=== PATIENT | female | born 1945 | race Caucasian/White ===

== ENCOUNTER 2021-03-17 10:36 | Emergency (ER) | payer OTHER, SELFPAY ==
[2021-03-17] VITALS (14 sets, daily range): BP systolic 129–159; BP diastolic 62–108; PULSE 64–88; RESP 16–25; TEMP 36.7; O2SAT 93–98
--- NOTE | 2021-03-17 10:30 | RT.EKG_ITS ---
APPROVED REPORT Exam: Resting ECG Reason for Exam: syncope Patient Location: E HR:77 bpm ECG Measurements Heart Rate 77 AXIS WY 188 P 58 QRSd 124 QRS -68 QT 442 T 32 QTc 502 Conclusion Sinus rhythm. RBBB pattern Probable left ventricular hypertrophy
--- NOTE | 2021-03-17 10:40 | W.ED.GENAD ---
Discharge Plan Disposition Patient Disposition: HOME Condition: Stable Discharge Details Clinical Impression: Dizziness Primary Care Provider: Unknown,Unknown ED Provider: Darrion Kaplan Home Meds and New Rx's Prescriptions: New meclizine 25 mg tablet 25 mg PO TID PRNQty: 14 RF: 0 Discharge Instructions Instructions: Dizziness (ED) Additional Instructions: Work-up in the ER did not reveal any obvious emergent process and you have responded nicely to the medication. I am prescribing meclizine, take as directed. Plenty of fluids to avoid dehydration. Please watch for new or worsening symptoms and return to the ER for any concerns. I know you are here visiting from [place] and I strongly recommend reevaluation for your primary care provider when you return home. After speaking with your daughter, it sounds as though you may be here for an unknown period of time and she will actively attempt to get you a local primary care provider to meet your outpatient needs while you are in the area. Medical Decision Making 75-year-old female, denies significant past medical history, reports intermittent dizziness like the room spinning since Friday however now has been more constant. Yesterday after getting up to the fridge she states that she blacked out for a split second. She did not fall to the ground nor did she lose consciousness. Clinically she appears well, nontoxic is neurologically intact. She denies recent illness or trauma. Clinical presentation is most consistent with vertigo however cannot rule out a CVA, TIA, infectious process, anemia, electrolyte abnormality, etc. Will obtain IV access, give IV fluid, p.o. meclizine, 2 mg IV Valium, obtain cardiac work-up and a head CT. Given the duration of her symptoms I believe that a single troponin and EKG is reasonable in her evaluation Laboratory values do not reveal any obvious emergent process. She does have incidental hematuria but denies any abdominal pain, back pain, dysuria, hematuria. upon reevaluation patient was witnessed ambulating without any difficulty. She reports that her symptoms have resolved completely and she is back to baseline. Still awaiting CT results. CT imaging read by radiology is unremarkable. I discussed findings both with patient and her daughter Aga on the phone. Patient continues to be asymptomatic. He situation is complicated because the patient typically lives in [place], that is where she receives her primary medical care. Patient is here currently for at least the next 3 weeks but likely longer while her daughter is going through cancer treatment. Daughter is comfortable taking her home in her current condition and they will attempt to establish primary care provider here while she is here in the area through the daughter's primary care provider. She requested I provide the prescription to [facility] in [place]. Neither patient nor daughter has any additional questions or concerns and are comfortable discharge, I will provide a prescription for meclizine. I stressed the importance of return to the ER for new or worsening symptoms and the importance of outpatient reevaluation whether that be local or back in [place]. Upon discharge patient is asymptomatic. Again work-up here in the ER does not reveal any obvious emergent process. Discussed that outpatient evaluation such as neurology consultation, MRI, etc. may be indicated. Medical Records Medical records reviewed: Yes I reviewed the patient's medical records. Imaging Data Radiologic Study: Attestation: I personally reviewed and interpreted this imaging study as follows: Imaging: CT Scan Radiologist's impression: [facility] Preliminary Radiology Report Call: [phone] assistance Online chat: [email or web address] Patient Name: HUGO FLETCHER Institution Name: [place] [address] Study Type: CT HEAD WO Ordered As: CT HEAD WO Date of Dictation: 17 Mar 2021 EDT Date of Exam: 17 Mar 2021 EDT Account Number: Patient : [id number] Patient Location: er Group Counselor: Referring Physician: Darrion KAPLAN This interpretation is based upon the receipt of 989 images. OPERATIONAL TEST MECHANIC (QA) DISCREPANCY? If there is a discrepancy between the preliminary and final interpretation, please notify [facility] via [email or web address]. If you do not have access to our QA portal, call our QA team at [phone] CONFIDENTIALITY STATEMENT This report is intended only for the use of the referring physician, and only in accordance with law, If you received this in error, call [phone] Page 1 of 1 PROCEDURE INFORMATION: Exam: CT Head Without Contrast Exam date and time: 03/17/2021 10:54 AM Age: 75 years old Clinical indication: Other: Dizzy, syncope TECHNIQUE: Imaging protocol: Computed tomography of the head without contrast. Radiation optimization: All CT scans at this facility use at least one of these dose optimization techniques: automated exposure control; mA and/or kV adjustment per patient size (includes targeted exams where dose is matched to clinical indication); or iterative reconstruction. COMPARISON: No relevant prior studies available. FINDINGS: Brain: Normal. No hemorrhage. Unremarkable white matter. No mass effect. Cerebral ventricles: No ventriculomegaly. Paranasal sinuses: Visualized sinuses are unremarkable. No fluid levels. Mastoid air cells: Visualized mastoid air cells are well aerated. Bones/joints: Hyperostosis frontalis. Soft tissues: Unremarkable. IMPRESSION: No acute intracranial findings. Thank you for allowing us to participate in the care of your patient. Dictated and Authenticated by: Iker Cabral MD 03/17/2021 12:36 PM Eastern Time ([place] & [place]) Lab Data Lab results reviewed: Yes I reviewed the patient's lab results. Labs: Laboratory Tests Range/Units 03/17/21 03/17/21 03/17/21 10:50 10:50 11:02 WBC (4.4-10.8) 10^3/uL 8.63 RBC (3.93-5.22) 10^6/uL 5.38 H Hgb (11.2-15.7) g/dL 15.0 Hct (36.0-46.0) % 45.9 MCV (80-95) fL 85.3 MCH (27.0-33.0) pg 27.9 MCHC (32.0-36.0) % 32.7 RDW (11.7-14.6) % 14.1 Plt Count (130-400) 10^3/uL 204 MPV (8.0-11.0) fL 11.6 H Immature Gran % 0.2 Neutrophils % 71.0 Lymphocytes % 20.0 Monocytes % 7.1 Eosinophils % 1.2 Basophils % 0.5 Nucleated RBC % % 0 Absolute Neutrophils (1.2-6.7) 10^3/uL 6.13 Absolute Lymphocytes (1.2-3.4) 10^3/uL 1.73 Absolute Monocytes (0.1-0.8) 10^3/uL 0.61 Absolute Eosinophils (0.0-0.7) 10^3/uL 0.10 Absolute Basophils (0.0-0.2) 10^3/uL 0.04 PT (9.3-11.0) sec 10.0 INR (0.9-1.1) 1.0 APTT (21.0-27.5) sec 23.4 Sodium (136-145) mmol/L 140 Potassium (3.5-5.1) mmol/L 4.1 Chloride (98-107) mmol/L 104 Carbon Dioxide (21.0-32.0) mmol/L 24.4 Anion Gap (3-11) mmol/L 11.6 H BUN (7-18) mg/dL 13 Creatinine (0.55-1.02) mg/dL 0.9 Estimated GFR/1.73 m2 (mL/min/1.73m2) >= 60.00 Glucose (74-106) mg/dL 98 Calcium (8.5-10.1) mg/dL 8.9 Magnesium (1.8-2.4) mg/dL 2.0 Total Bilirubin (0.2-1.0) mg/dL 0.8 AST (15-37) U/L 13 L ALT (14-59) U/L 20 Alkaline Phosphatase (46-116) U/L 86 Troponin I (<0.06) ng/mL < 0.05 Total Protein (6.4-8.2) g/dL 7.7 Albumin (3.4-5.0) g/dL 3.8 TSH (0.36-3.74) uIU/mL 2.78 Urine Color (Yellow) Urine Clarity (Clear) Urine pH (5-8) Ur Specific [place] (1.005-1.025) Urine Protein (Negative) mg/dL Urine Ketones (Negative) mg/dL Urine Blood (Negative) Urine Nitrite (Negative) Urine Bilirubin (Negative) Urine Urobilinogen (Up TO 0.2) EU/dL Ur Leukocyte Esterase (Negative) Urine RBC (0-2) HPF Urine WBC (0-5) HPF Ur Epithelial Cells (Negative) HPF Urine Crystals (Negative) HPF Urine Bacteria (Negative) HPF Urine Casts (Negative) LPF Urine Mucus (Negative) Ur Culture Indicated? Urine Glucose (Negative) mg/dL Range/Units 03/17/21 12:20 WBC (4.4-10.8) 10^3/uL RBC (3.93-5.22) 10^6/uL Hgb (11.2-15.7) g/dL Hct (36.0-46.0) % MCV (80-95) fL MCH (27.0-33.0) pg MCHC (32.0-36.0) % RDW (11.7-14.6) % Plt Count (130-400) 10^3/uL MPV (8.0-11.0) fL Immature Gran % Neutrophils % Lymphocytes % Monocytes % Eosinophils % Basophils % Nucleated RBC % % Absolute Neutrophils (1.2-6.7) 10^3/uL Absolute Lymphocytes (1.2-3.4) 10^3/uL Absolute Monocytes (0.1-0.8) 10^3/uL Absolute Eosinophils (0.0-0.7) 10^3/uL Absolute Basophils (0.0-0.2) 10^3/uL PT (9.3-11.0) sec INR (0.9-1.1) APTT (21.0-27.5) sec Sodium (136-145) mmol/L Potassium (3.5-5.1) mmol/L Chloride (98-107) mmol/L Carbon Dioxide (21.0-32.0) mmol/L Anion Gap (3-11) mmol/L BUN (7-18) mg/dL Creatinine (0.55-1.02) mg/dL Estimated GFR/1.73 m2 (mL/min/1.73m2) Glucose (74-106) mg/dL Calcium (8.5-10.1) mg/dL Magnesium (1.8-2.4) mg/dL Total Bilirubin (0.2-1.0) mg/dL AST (15-37) U/L ALT (14-59) U/L Alkaline Phosphatase (46-116) U/L Troponin I (<0.06) ng/mL Total Protein (6.4-8.2) g/dL Albumin (3.4-5.0) g/dL TSH (0.36-3.74) uIU/mL Urine Color (Yellow) Yellow Urine Clarity (Clear) Clear Urine pH (5-8) 6.5 Ur Specific [place] (1.005-1.025) 1.015 Urine Protein (Negative) mg/dL Negative Urine Ketones (Negative) mg/dL Negative Urine Blood (Negative) Large H Urine Nitrite (Negative) Negative Urine Bilirubin (Negative) Negative Urine Urobilinogen (Up TO 0.2) EU/dL 0.2 Ur Leukocyte Esterase (Negative) Negative Urine RBC (0-2) HPF >50 H Urine WBC (0-5) HPF 0-2 Ur Epithelial Cells (Negative) HPF Few Urine Crystals (Negative) HPF Negative Urine Bacteria (Negative) HPF Negative Urine Casts (Negative) LPF Negative Urine Mucus (Negative) Negative Ur Culture Indicated? No Urine Glucose (Negative) mg/dL Negative ECG Data Attestation: I personally reviewed and interpreted this ECG (s) as follows: Interpretation: Please see official report by Dr. Mejia. Sinus rhythm, ventricular rate of 77. Right bundle block pattern, probable left ventricular hypertrophy. No STEMI HPI General Mode of arrival: wheelchair. Date/Time Provider Initiated Documentation: 03/17/21 10:37. Limitations to Documentation: no limitations. Information obtained by: patient. HPI Narrative: This is a 75-year-old female presenting to the ER reporting dizziness that began on Friday. She reports that the dizziness feels like the room is spinning and is made worse with movement of her head or eyes. It was initially intermittent but now is more constant and associated with nausea but no vomiting. She states that she had a similar episode many years ago but never again. She is currently visiting here from [place], staying with her daughter who is battling Hodgkin's lymphoma. Patient states that she does have a primary care provider back in [place], denies significant past medical history, and denies being on any medications actively. She reports having had a normal stress test just 2 years ago. Patient denies recent illness or trauma. She states that yesterday she got up to the fridge and when opening the fridge everything went black, this lasted for a split second. She did not fall to the ground. She denies any headache, visual changes, neck pain, chest pain, shortness of breath, abdominal pain, vomiting, change in bowel or bladder function, numbness, tingling, generalized or focal weakness, skin rash. Related Data Home Medications Medication Instructions Recorded Confirmed meclizine 25 mg PO TID PRN #14 tab 03/17/21 Previous Rx's Medication Instructions Recorded meclizine 25 mg PO TID PRN #14 tab 03/17/21 Allergies Allergy/AdvReac Type Severity Reaction Status Date / Time No Known Allergies Allergy Unverified 03/17/21 10:49 Review of Systems Constitutional Constitutional: Denies fatigue, Denies fever(s), Denies headache(s) and Denies weakness Eyes Eyes: Denies change in vision ENT Ears, Nose, Mouth, and Throat: Denies headache(s) and Denies neck pain Cardiovascular Cardiovascular: Denies chest pain and Denies dyspnea Respiratory Respiratory: Denies cough and Denies dyspnea Gastrointestinal Gastrointestinal: Denies abdominal pain, Reports nausea and Denies vomiting Genitourinary Genitourinary: Denies dysuria Musculoskeletal Musculoskeletal: Denies back pain, Denies neck pain, Denies numbness and Denies tingling Integumentary/Breasts Skin/Breast: Denies rash Neurologic Neurologic: Denies headache(s), Denies numbness, Denies tingling and Denies weakness Endocrine Endocrine: Denies fatigue Hematologic/Lymphatic Hematologic/Lymphatic: Denies easy bleeding and Denies easy bruising PFSH Social History Smoking/Tobacco Use Status: Former Tobacco Use Smoking risk assessment performed?: Yes Alcohol Intake: never Drug use: Never Substance use type: does not use Do you feel safe at home: Yes Do you feel safe in your relationship?: Yes Exam Const General: cooperative, healthy appearing, comfortable and no acute distress Orientation: alert, awake and oriented x3 HENMT Head: normal to inspection, normocephalic and atraumatic Ears: other (Bilateral TM obscured secondary to cerumen) General nose exam: external nose normal Face and sinus: normal facial exam Mouth: moist mucous membranes Throat: posterior oropharynx normal Eyes General: appearance normal, both eyes and all related structures Alignment and Position: alignment normal Periorbital: periorbital findings normal Eyelids: eyelids normal Conjunctivae: conjunctivae normal Sclera: sclerae normal Cornea: corneas normal Pupils: PERRL EOM: EOM intact bilaterally Direct ophthalmoscopy: normal light reflex Other: No nystagmus but patient subjectively reports increasing symptoms with movement of her eyes from the left to right direction Neck Neck: normal visual inspection, full ROM, no meningeal signs, trachea midline, supple and nontender Resp Effort & Inspection: normal respiratory effort and able to speak in complete sentences Auscultation: clear to auscultation bilaterally Cardio Rate: regular rate Rhythm: regular rhythm GI Inspection: obesity Palpation: soft, not firm, no guarding, no pulsatile masses and nontender Auscultation: normal bowel sounds Back/Spine/Pelvis Back: No back tenderness Skin General skin exam: no rashes or lesions noted Neuro General: patient alert, patient awake, patient oriented x3, moves all extremities and no focal motor deficits Cranial Nerves: CN's II-XI intact bilaterally Cognition: normal cognition Speech: speech normal Gait: normal gait Motor: muscle tone normal throughout, strength 5/5 throughout, no pronator drift, no movement abnormalities noted and no fasciculations Sensory Exam: no sensory deficits noted Coordination: [id number] test normal and Does not sway with eyes open Extrem General: normal to inspection, full ROM, capillary refill normal and no calf tenderness Psych Appearance: grossly normal Mental Status: mental status grossly normal
--- NOTE | 2021-03-17 10:45 | DI.CT_ITS ---
Exam(s) CT HEAD WO EXAM: CT HEAD WO CLINICAL HISTORY: dizzy/syncope. TECHNIQUE: Imaging Protocol: Axial computed tomography images with coronal and sagittal reformatted images were created and reviewed COMPARISON: No exams were available for comparison FINDINGS: There are no skull fractures nor fluid in the visualized paranasal sinuses. Hyperostosis frontalis interna incidentally noted. There is no evidence of intracranial hemorrhage, mass effect, or shift of midline structures. There are no extra-axial fluid collections. The ventricles are not enlarged or shifted and there is no blo od within the ventricular system nor within the basal cisterns. IMPRESSION: No acute intracranial findings on this noninfused CT scan of the brain. RADIATION DOSE DELIVERED: 854.63mGy.cm Total DLP DATA REPOSITORY: All CT scans at this facility are submitted to the National Radiology Data Registry (NRDR) Dose Index Registry (DIR) with the [employer] ([employer]). RADIATION OPTIMIZATION: All CT scans at this facility use at least one of these dose optimization te chniques: automated exposure control; mA and/or kV adjustment per patient size (includes targeted exa ms where dose is matched to clinical indication); or iterative reconstruction.
[2021-03-17 11:00] LABS: Abs Immature Grans 0.02 10^3/uL (0.0-0.06); Absolute Basophil Count 0.04 10^3/uL (0.0-0.2); Absolute Lymphocyte Count 1.73 10^3/uL (1.2-3.4); Absolute Monocyte Count 0.61 10^3/uL (0.1-0.8); Absolute Neutrophil Count 6.13 10^3/uL (1.2-6.7); Basophils % 0.5; Eosinophils % 1.2; HCT 45.9 % (36.0-46.0); Immature Grans % 0.2; MCH 27.9 pg (27.0-33.0); MCHC 32.7 % (32.0-36.0); MCV 85.3 fL (80-95); MPV 11.6 fL (8.0-11.0); Monocytes % 7.1; Nucleated RBC 0 %; Platelet Count 204 10^3/uL (130-400); RBC 5.38 10^6/uL (3.93-5.22); RDW 14.1 % (11.7-14.6); RDW-SD 43.8 fL; WBC 8.63 10^3/uL (4.4-10.8)
[2021-03-17] MEDS: Normal Saline 1,000 ML 150 ML IV ×2 (11:01→17:42)
[2021-03-17] MEDS: diazePAM 10 MG/2 ML SYR 2 MG IVP (11:16)
[2021-03-17] MEDS: Meclizine 25 MG TAB PO (11:17)
[2021-03-17 11:21] LABS: ALT 20 U/L (14-59); AST 13 U/L (15-37); Albumin 3.8 g/dL (3.4-5.0); Alkaline Phosphatase 86 U/L (46-116); Anion Gap 11.6 mmol/L (3-11); BUN 13 mg/dL (7-18); Bilirubin, Total 0.8 mg/dL (0.2-1.0); CO2 24.4 mmol/L (21.0-32.0); CREATININE 0.9 mg/dL (0.55-1.02); Calcium 8.9 mg/dL (8.5-10.1); Chloride 104 mmol/L (98-107); Glucose 98 mg/dL (74-106); Potassium 4.1 mmol/L (3.5-5.1); Sodium 140 mmol/L (136-145); TSH 2.78 uIU/mL (0.36-3.74); Total Protein 7.7 g/dL (6.4-8.2)
[2021-03-17 11:21] LABS: PTT Activated 23.4 sec (21.0-27.5)
[2021-03-17 11:22] LABS: Troponin I < 0.05 ng/mL (<0.06)
[2021-03-17 12:28] LABS: Bilirubin Negative (Negative); Blood Large (Negative); Clarity Clear (Clear); Glucose Negative (Negative); Ketones Negative (Negative); Leukocyte Esterase Negative (Negative); Nitrite Negative (Negative); Specific Gravity 1.015 (1.005-1.025); Urobilinogen 0.2 EU/dL (Up TO 0.2); pH 6.5 (5-8)
--- NOTE | 2021-03-17 12:36 | DI.VRAD_ITS ---
PROCEDURE INFORMATION: Exam: CT Head Without Contrast Exam date and time: 03/17/2021 10:54 AM Age: 75 years old Clinical indication: Other: Dizzy, syncope TECHNIQUE: Imaging protocol: Computed tomography of the head without contrast. Radiation optimization: All CT scans at this facility use at least one of these dose optimization techniques: automated exposure control; mA and/or kV adjustment per patient size (includes targeted exams where dose is matched to clinical indication); or iterative reconstruction. COMPARISON: No relevant prior studies available. FINDINGS: Brain: Normal. No hemorrhage. Unremarkable white matter. No mass effect. Cerebral ventricles: No ventriculomegaly. Paranasal sinuses: Visualized sinuses are unremarkable. No fluid levels. Mastoid air cells: Visualized mastoid air cells are well aerated. Bones/joints: Hyperostosis frontalis. Soft tissues: Unremarkable. IMPRESSION: No acute intracranial findings. Dictated and Authenticated by: Iker Cabral MD. Ordering:SUSANNE Maier MD
[2021-03-17 12:37] LABS: Bacteria Negative HPF (Negative); C & S Indicated? No; Casts Negative LPF (Negative); Crystals Negative HPF (Negative); Epithelial Cells Few HPF (Negative); Mucus Negative (Negative); RBC >50 HPF (0-2); WBC 0-2 HPF (0-5)
== END 2021-03-17 13:43 | disposition home or self-care (01) ==
PROVIDERS: Emergency Provider Physician Assistant
DX: R42 Dizziness and giddiness (principal); R68.89 Other general symptoms and signs
CPT/HCPCS: 36415; 80053; 93005; 96374; 99284; 70450; 81003; 81015; 83735; 84443; 84484; 85025; 85610; 85730; 93010; 99283; J3360